=== PATIENT | female | born 1975 | race African-American/Black ===

== ENCOUNTER 2020-09-25 00:10 | Emergency (ER) | payer OTHER, SELFPAY ==
[2020-09-25 00:11] VITALS: BP 140/87; PULSE 82; RESP 16; TEMP 36.7; O2SAT 100
--- NOTE | 2020-09-25 00:20 | ED.ALCOHOL ---
HPI - Alcohol General Chief Complaint: Alcohol Stated Complaint: weak all over, nauseated, etoh Time Seen by Provider: 09/25/20 00:11 History of Present Illness HPI narrative: 45 yo female brought in form home by EMS for altered mental status. She and her were reportedly drinking heavily this evening. He then found her unrespnsive and called 911. EMS found her intoxicated, but awake and fully oriented. She told them that she just wasn't feeling right and wanted to come in to be seen. On arrival here she is still not feeling normal, but says that she doesn't know how to describe it. Related Data Allergies Allergy/AdvReac Type Severity Reaction Status Date / Time hydrocodone AdvReac Unknown makes me Verified 02/26/18 10:11 feel like i'm on fire Review of Systems Review of Systems: All systems reviewed & are unremarkable except as noted in HPI and below Constitutional: Constitutional: Denies fever(s) and Denies weakness Cardiovascular: Cardiovascular: Denies chest pain Respiratory: Respiratory: Denies dyspnea Gastrointestinal: Gastrointestinal: Denies abdominal pain and Reports nausea Musculoskeletal: Musculoskeletal: Denies back pain Neurologic: Reports dizziness [facility] Past Medical History Medical History (Updated 09/25/20 @ 02:13 by Emile Saenz MD) Healthy female adult Social History Social History (Updated 09/25/20 @ 02:09 by Emile Saenz MD) Smoking status: Never smoker Exam Const: General: no acute distress and alert Orientation/consciousness: patient oriented x3 HENMT: Head: normal to inspection Eyes: Pupils: Equal, round and reactive pupils present EOM: EOMs intact bilaterally Resp: Effort & Inspection: normal respiratory effort Auscultation: clear to auscultation bilaterally Cardio: Rate: regular rate Rhythm: regular rhythm GI: GI Palp: Yes Soft to palpation and No Tenderness to palpation present (GI) Skin: General skin exam: normal color Rashes: no rashes Neuro: General: patient oriented x3, moves all extremities and CN's II-XI intact bilaterally Speech: Abnormal speech present slurred Extrem: General: normal to inspection Course Reevaluation(s) Reevaluation #1: She reports that she is feeling much better now. Date: 09/25/20 Time: 02:10 Vital Signs Vital signs: Vital Signs Temperature 36.7 C 09/25/20 00:11 Pulse Rate 82 09/25/20 00:11 Respiratory Rate 16 09/25/20 00:11 Blood Pressure 140/87 09/25/20 00:11 Pulse Oximetry 100 09/25/20 00:11 Temperature 36.7 C 09/25/20 00:11 Pulse Rate 79 09/25/20 03:44 Respiratory Rate 18 09/25/20 03:44 Blood Pressure 122/77 09/25/20 01:40 Pulse Oximetry 100 09/25/20 03:44 MDM - Alcohol Differential Diagnosis Differential diagnosis: Likely alcohol intoxication and other Medical Records Attestation: I reviewed the patient's medical records. Lab Data Attestation: I reviewed the patient's lab results. Result diagrams: 09/25/20 00:24 09/25/20 00:24 Labs: Lab Results 09/25/20 09/25/20 09/25/20 Range/Units 00:24 00:24 00:24 WBC 9.7 (4.5-10.0) K/mm3 RBC 4.29 (4.2-5.4) M/mm3 Hgb 13.5 (12.0-15.0) g/dL Hct 39.8 (37.0-47.0) % MCV 92.8 (80-100) fl MCH 31.5 (26-34) pg MCHC 33.9 (32-36) g/dl RDW 12.2 (11.5-14.5) % Plt Count 256 (150-375) k/mm3 MPV 9.4 (7.4-10.4) fl Immature Gran % (Auto) 0.4 (0-0.5) % Neut % (Auto) 58.1 (45.5-73.1) % Lymph % (Auto) 28.2 (18.3-44.2) % [place] % (Auto) 6.8 (2.6-8.5) % Eos % (Auto) 5.7 H (0-4.4) % Baso % (Auto) 0.8 (0.2-1.2) % Lymph # (Auto) 2.74 (0.9-3.2) K/mm3 [place] # (Auto) 0.7 H (0.1-0.6) K/mm3 Eos # (Auto) 0.6 H (0-0.3) K/mm3 Baso # (Auto) 0.1 (0.0-0.1) K/mm3 Abs Immat Gran (auto) 0.04 H (0.00-0.031) K/mm3 Absolute Neuts (auto) 5.6 (1.3-6.7) K/mm3 Absolute Nucleated RBC 0.0 (0.0-0.01
[2020-09-25] MEDS: SODIUM CHLORIDE 0.9% IV 1,000 ML 999 ML IV CONT (00:27)
[2020-09-25 00:31] LABS: Basophils Absolute Auto 0.1 K/mm3 (0.0-0.1); Basophils Percent Auto 0.8 % (0.2-1.2); Eosinophils Absolute Auto 0.6 K/mm3 (0-0.3); Eosinophils Percent Auto 5.7 % (0-4.4); Hematocrit 39.8 % (37.0-47.0); Hemoglobin 13.5 g/dL (12.0-15.0); Immature Granulocyte Absolute 0.04 K/mm3 (0.00-0.031); Immature Granulocyte Percent A 0.4 % (0-0.5); Lymphocytes Absolute Auto 2.74 K/mm3 (0.9-3.2); Lymphocytes Percent Auto 28.2 % (18.3-44.2); Mean Corpuscular HGB Conc 33.9 g/dl (32-36); Mean Corpuscular Hemoglobin 31.5 pg (26-34); Mean Corpuscular Volume 92.8 fl (80-100); Mean Platelet Volume 9.4 fl (7.4-10.4); Monocytes Absolute Auto 0.7 K/mm3 (0.1-0.6); Monocytes Percent Auto 6.8 % (2.6-8.5); Neutrophils Absolute Auto 5.6 K/mm3 (1.3-6.7); Neutrophils Percent Auto 58.1 % (45.5-73.1); Platelet Count Result 256 k/mm3 (150-375); Red Blood Count 4.29 M/mm3 (4.2-5.4); Red Cell Distribution Width 12.2 % (11.5-14.5); White Blood Count 9.7 K/mm3 (4.5-10.0)
[2020-09-25 00:41] LABS: Alanine Aminotransferase 22 U/L (4-35); Albumin Level 4.2 g/dL (3.5-5.1); Alkaline Phosphatase 34 U/L (38-126); Anion Gap 9 mmol/L (8-16); Aspartate Amino Transferase 23 U/L (14-36); Bilirubin,Total 0.2 mg/dL (0.2-1.3); Blood Urea Nitrogen 9 mg/dL (7-17); Calcium 8.9 mg/dL (8.4-10.2); Carbon Dioxide 20 mmol/L (22-30); Chloride 112 mmol/L (98-107); Estimated CRCL calculation 77 ml/min; Estimated Glomerular Filt Rate > 60; Glucose 122 mg/dL (65-105); Potassium 4.1 mmol/L (3.4-5.0); Sodium 141 mmol/L (137-145)
[2020-09-25 01:38] LABS: Add Urine Microscopic? NO; Appearance Urine Clear (Clear); Bilirubin Urine Negative (Negative); Blood Urine Negative (Negative); Color Urine Colorless (Yellow); Glucose Urine UA Negative (Negative); Ketones Urine Negative (Negative); Leukocyte Esterase Ur Negative LEU/UL (Negative); Nitrate Urine Negative (Negative); Protein Urine Negative (Negative); Specific Grav Ur 1.011 (1.001-1.035); Urobilinogen Urine Negative mg/dL (<2.0)
[2020-09-25 01:40] VITALS: BP 122/77; PULSE 78; RESP 16; O2SAT 100
[2020-09-25 01:58] LABS: Amphetamine Screen Urine Negative (Negative); Barbiturate Screen Urine Negative (Negative); Benzodiazepines Screen Urine Negative (Negative); Cannabinoid Screen Urine Negative (Negative); Cocaine Screen Urine Negative (Negative); Methadone Screen Urine Negative (Negative); Opiate Screen Urine Negative (Negative); Phencyclidine Screen Urine Negative (Negative)
[2020-09-25 02:04] LABS: Ethanol 164 mg/dL (<10)
[2020-09-25 03:44] VITALS: PULSE 79; RESP 18; O2SAT 100
[2020-09-25 05:54] VITALS: BP 138/87; PULSE 78; RESP 16; TEMP 36.4; O2SAT 98
== END 2020-09-25 05:54 | disposition home or self-care (01) ==
PROVIDERS: Emergency Provider Emergency Medicine; PCP Internal Medicine
DX: F10.129 Alcohol abuse with intoxication, unspecified (principal); Y90.6 Blood alcohol level of 120-199 mg/100 ml
CPT/HCPCS: 36415; 80053; 80307; 81003; 85025; 96360; 99283; J7030

== ENCOUNTER 2020-12-16 17:25 | Outpatient (CLI) | payer OTHER, SELFPAY ==
--- NOTE | ~2020-12-16 | MM_ITS ---
EXAMINATION: MM screening rylee BI w debbie HISTORY: Screening mammogram TECHNIQUE: Craniocaudal and mediolateral oblique 3-D tomosynthesis images were obtained and synthetic 2-D images were generated. CAD analysis was submitted and interpreted. COMPARISON: No prior mammogram is available for comparison at this institution. BREAST PARENCHYMAL COMPOSITION: The breasts are almost entirely fatty FINDINGS: Approximately 4 x 10 mm circumscribed opacity in the lower inner quadrant of the right clare st; targeted ultrasound is recommended. Otherwise there is no evidence of suspicious mass, calcification, or architectural distortion to sugg est malignancy in either breast. There has been no suspicious interval change. IMPRESSION: 1. 4 x 10 mm circumscribed low density opacity in the lower inner quadrant of the right breast 2. Targeted lower inner quadrant right breast ultrasound examination is recommended. BIRADS Category 0: Incomplete; need additional imaging evaluation Reviewed, dictated and finalized at location A. IMPRESSION: 1. 4 x 10 mm circumscribed low density opacity in the lower inner quadrant of t he right breast 2. Targeted lower inner quadrant right breast ultrasound examination is recomme nded. BIRADS Category 0: Incomplete; need additional imaging evaluation
== END 2020-12-16 17:26 | disposition home or self-care (01) ==
LOC: ANHIMG 17:29
PROVIDERS: PCP Internal Medicine; Visit Provider Internal Medicine
DX: Z12.31 Encounter for screening mammogram for malignant neoplasm of breast (principal); R92.8 Other abnormal and inconclusive findings on diagnostic imaging of breast
CPT/HCPCS: 77063; 77067

== ENCOUNTER 2020-12-30 13:28 | Outpatient (CLI) | payer OTHER, SELFPAY ==
--- NOTE | 2020-12-30 | ECHO_ITS ---
Patient Info Name: Serena Burgos Age: 45 years : 1975 Gender: Female Ht: 63 in Wt: 210 lbs BSA: 2.10 m2 HR: 59 bpm BP: 157 / 88 mmHg Heart Rhythm: Sinus Rhythm Technical Quality: Good Exam Date: 12/30/2020 2:20 PM Exam Location: [facility] Patient Status: Outpatient Admit Date: 12/30/2020 Staff Ordering Physician: Maya, Prakash SALCEDO Mobile Device Engineer: Therese Kim RDCS Attending Provider: Maya, Prakash SALCEDO Exam Type: CA echo doppler color flow Study Info Indications R07.9 - CHEST PAIN R06.02 - Shortness of breath Complete two-dimensional, color flow and Doppler transthoracic echocardiogram is performed. Summary 1. Complete two-dimensional, color flow and Doppler transthoracic echocardiogram is performed. 2. Left ventricular chamber dimension is normal. 3. Left ventricular systolic function is normal, estimated at 60-65%. 4. There is no increased left ventricular wall thickness. 5. The left ventricular diastolic function is normal. 6. There is mild mitral valve regurgitation. 7. There is mild tricuspid valve regurgitation. 8. There is mild pulmonic regurgitation. Left Ventricle Left ventricular chamber dimension is normal. Left ventricular systolic function is normal, estimated at 60-65%. There is no increased left ventricular wall thickness. The left ventricular diastolic function is normal. Right Ventricle Right ventricular chamber dimension is normal. Right ventricular systolic function is normal. Left Atria Left atrial chamber dimension is normal. Right Atria Right atrial chamber dimension is normal. Atrial Septum Intact interatrial septum visualized by color flow imaging. Aortic Valve The aortic valve is trileaflet. There is mild aortic valve sclerosis. There is no aortic valve stenosis. There is trace aortic valve regurgitation. Pulmonic Valve The pulmonic valve is normal. There is no pulmonic valve stenosis. There is mild pulmonic regurgitation. Mitral Valve The mitral valve has normal leaflets. There is no mitral valve stenosis. There is mild mitral valve regurgitation. Tricuspid Valve The tricuspid valve leaflets are normal. There is no significant tricuspid valve stenosis. There is mild tricuspid valve regurgitation. No pulmonary hypertension, estimated pulmonary arterial systolic pressure is 34 mmHg. Pericardium/Pleural The pericardium appears normal. There is no pericardial effusion. Inferior Vena Cava Normal inferior vena cava with >50% collapse upon inspiration consistent with normal right atrial pressure, 10 mmHg. Aorta The aortic root size at the sinus of Valsalva is normal. The prox ascending aorta size is normal. Left Ventricular Outflow Tract Name Value Normal LVOT 2D LVOT Diameter 2.0 cm LVOT Doppler LVOT Peak Gradient 4 mmHg LVOT Mean Gradient 2 mmHg LVOT VTI 24 cm LVOT VTI/AV VTI Ratio 0.8 LVOT Stroke Volume 72 ml LVOT CO
== END 2020-12-30 13:29 | disposition home or self-care (01) ==
LOC: ANHCARD 13:31
PROVIDERS: PCP Internal Medicine; Visit Provider Internal Medicine
DX: R00.2 Palpitations (principal); R07.9 Chest pain, unspecified; R06.02 Shortness of breath
CPT/HCPCS: 93306

== ENCOUNTER 2023-05-30 14:25 | Emergency (ER) | payer OTHER, SELFPAY ==
[2023-05-30 14:35] VITALS: BP 134/71; PULSE 74; RESP 16; TEMP 36.3; O2SAT 98
[2023-05-30 14:37] VITALS: BP 134/71; PULSE 74; RESP 16; TEMP 36.3; O2SAT 98
--- NOTE | 2023-05-30 14:45 | ED.SKABFB ---
HPI - Skin/Abscess/Foreign Bdy General Chief complaint: Skin/Abscess/Foreign Body Stated complaint: Insect Bite Source: patient Mode of arrival: ambulatory Limitations: no limitations History of Present Illness HPI narrative: 48-year-old female presented for complaint of insect sting reaction to the right calf. States yesterday while cutting the grass she was stung by yellow jacket bee. She applied triamcinolone cream. Woke this morning with redness, warmth and swelling spreading to the lateral calf area. Endorses pain with walking, with itching and burning sensation to the site. States the redness is spreading down the leg. Denies lip, tongue, or throat swelling, shortness of breath or wheezing. Related Data Home Medications Medication Instructions Recorded Confirmed ergocalciferol (vitamin D2) 1,250 05/30/23 mcg (50,000 unit) capsule Allergies Allergy/AdvReac Type Severity Reaction Status Date / Time hydrocodone AdvReac Unknown makes me Verified 05/30/23 14:36 feel like i'm on fire Review of Systems Review of Systems: CONSTITUTIONAL: Denies body aches, fever, chills, or sweats. EYES: Denies visual changes, redness, or discharge. ENT: Denies rhinorrhea, congestion CARDIOVASCULAR: Denies chest pain, palpitations, or edema. RESPIRATORY: Denies cough or dyspnea. GASTROINTESTINAL: Denies abdominal pain, nausea, vomiting, or diarrhea. SKIN: per HPI MUSCULOSKELETAL: Denies back pain, joint pain, or myalgia. NEUROLOGIC: Denies headache, numbness, tingling, or weakness. [facility] Past Medical History Medical History Healthy female adult Social History Social History Smoking status: Never smoker Comments At time of signature, I have reviewed and agree with nursing past medical, surgical, social and family history unless otherwise noted. Please see nursing chart for further information. There is no relevant family history pertinent to the presenting complaint Exam Narrative: GENERAL: Well-appearing HEAD: Normocephalic, atraumatic. EYES: conjunctivae clear, and EOMI. ENT: Mucous membranes moist. Oropharynx without edema, erythema or lesions. NECK: Supple. No lymphadenopathy CHEST: Clear to auscultation. HEART: Regular rate and rhythm. SKIN: Warm, dry. Right lateral calf with erythema, warmth, skin tight with swelling, and tenderness; puncture site at center. Approximately 15 cm diameter. Consistent with cellulitis vs allergic reaction secondary to insect sting. No induration, fluctuance or active drainage. EXT: Normal ROM. No edema. NEURO: Alert and oriented x3. Extrem: Upper/lower leg/hip images: 1. site of redness, swelling and warmth Course Course Emergency Course: Patient is aware of diagnosis, understands and agrees to treatment plan. Anticipatory guidance given. Patient agrees to follow-up as directed and is aware of reasons to seek care at the emergency department. Portions of this record may have been created with voice recognition software Level of Care: Express Care Visit Vital Signs Vital signs: Vital Signs Temperature 97.3 F L 05/30/23 14:35 Pulse Rate 74 05/30/23 14:35 Respiratory Rate 16 05/30/23 14:35 Blood Pressure 134/71 05/30/23 14:35 Pulse Oximetry 98 05/30/23 14:35 Oxygen Delivery Room Air 05/30/23 14:35 Temperature 97.3 F L 05/30/23 14:37 Pulse Rate 74 05/30/23 14:37 Respiratory Rate 16 05/30/23 14:37 Blood Pressure 134/71 05/30/23 14:37 Pulse Oximetry 98 05/30/23 14:37 Oxygen Delivery Room Air 05/30/23 14:37 Reviewed MDM - Skin/Abscess/Foreign Bdy MDM Narrative Medical decision making narrative: Discussed physical exam findings c/w cellulitis vs allergic reaction from insect. Advised supportive measures and signs/symptoms to go to the ER. Pt is appropriate for outpt
== END 2023-05-30 15:00 | disposition home or self-care (01) ==
PROVIDERS: Emergency Provider Nurse Practitioner Family; PCP Internal Medicine
DX: L03.115 Cellulitis of right lower limb (principal); Z79.899 Other long term (current) drug therapy
CPT/HCPCS: 99213; G0463